=== PATIENT | male | born 1960 | race Caucasian/White ===

== ENCOUNTER 2018-03-19 23:26 | Emergency (ER) | payer BC ==
[2018-03-20] MEDS ORDERED: NA CHLORIDE 0.9% 1,000 ML ONE (00:05)
[2018-03-20] MEDS ORDERED: KETOROLAC 30 MG/ML INJ ONE (00:05)
[2018-03-20] MEDS ORDERED: ONDANSETRON 4 MG/2 ML VIAL ONE (00:05)
[2018-03-20 00:12] LABS: Absolute Lymphocytes (CBC) 2.6 K/uL (0.7-4.9); Absolute Monocytes 0.8 K/uL (0.1-1.3); Absolute Neutrophil 6.8 K/uL (1.8-8.0); Basophils % 0.7 % (0-1.3); Eosinophils % 1.2 % (0-4.4); Hematocrit 43.7 % (39.6-49.0); Lymphocytes % 25.1 % (15.3-44.8); MCH 29.7 pg (27.0-35.0); MCV 89.5 fL (80-100); MPV 9.5 fL (7.6-11.3); Monocytes % 7.8 % (3.3-12.3); RBC Red Blood Cell Count 4.88 M/uL (4.33-5.43)
[2018-03-20 00:22] LABS: Urine Blood 1+ (NEG); Urine Glucose NEGATIVE (NEG); Urine Protein NEGATIVE (NEG); Urine Specific Gravity >1.030 (1.005-1.030)
[2018-03-20 00:25] LABS: Albumin 4.1 g/dL (3.4-5.0); Bilirubin Direct 0.2 mg/dL (0-0.2); Bilirubin Total 0.8 mg/dL (0.2-1.0); Potassium 3.7 mmol/L (3.5-5.1); Protein, Total 7.7 g/dL (6.4-8.2)
[2018-03-20 00:26] LABS: Calcium Oxalate Crystals- Ur MODERATE (NONE SEEN); Urine Bacteria <20 /HPF (NONE SEEN); Urine Culture Reflex Order NOT NEEDED; Urine Mucus 2+ /HPF (NONE SEEN); Urine RBC <5 /HPF (NONE SEEN); Urine Sperm PRESENT (NONE SEEN)
--- NOTE | 2018-03-20 02:14 | EDPHYS ---
Physician Documentation [facility] Name: Nahum Quiros Age: 57 yrs Sex: Male : 1960 Arrival Date: 03/19/2018 Time: 23:27 Bed 28 Private MD: Jaskaran Jones B ED Physician Soy Can HPI: 03/20 01:33 This 57 yrs old Male presents to ER via Ambulatory with complaints of tw4 Possible Kidney Stone. 01:33 The patient complains of pain in the left low back. The pain radiates to the left lower tw4 quadrant. Onset: The symptoms/episode began/occurred today. Modifying factors: The symptoms are alleviated by nothing. the symptoms are aggravated by nothing. Associated signs and symptoms: The patient has no apparent associated signs or symptoms. Severity of pain: At its worst the pain was moderate in the emergency department the pain is unchanged. The patient has not experienced similar symptoms in the past. Historical: - Allergies: 03/19 23:39 PENICILLINS; bb - Home Meds: 23:39 telmisartan 40 mg oral tab 1 tab twice a day [Active]; bb - PMHx: 23:39 Hypertension; Kidney stones; bb - PSHx: 23:39 Hernia repair; bb - Immunization history:: Adult Immunizations up to date. - Social history:: Smoking status: unknown. - Ebola Screening: : No symptoms or risks identified at this time. ROS: 03/20 01:33 Constitutional: Negative for fever, chills, and weight loss, Cardiovascular: Negative tw4 for chest pain, palpitations, and edema, Respiratory: Negative for shortness of breath, cough, wheezing, and pleuritic chest pain, Abdomen/GI: Negative for abdominal pain, nausea, vomiting, diarrhea, and constipation. Neuro: Negative for headache, weakness, numbness, tingling, and seizure, Psych: Negative for depression, anxiety, suicide ideation, homicidal ideation, and hallucinations. Back: Positive for pain at rest, pain with movement, flank pain, on the left, radiated pain. Exam: 01:33 Constitutional: This is a well developed, well nourished patient who is awake, alert, tw4 and in no acute distress. Head/Face: Normocephalic, atraumatic. Chest/axilla: Normal chest wall appearance and motion. Nontender with no deformity. No lesions are appreciated. Cardiovascular: Regular rate and rhythm with a normal S1 and S2. No gallops, murmurs, or rubs. Normal PMI, no JVD. No pulse deficits. Respiratory: Lungs have equal breath sounds bilaterally, clear to auscultation and percussion. No rales, rhonchi or wheezes noted. No increased work of breathing, no retractions or nasal flaring. Abdomen/GI: Soft, non-tender, with normal bowel sounds. No distension or tympany. No guarding or rebound. No evidence of tenderness throughout. 01:33 Back: pain, is absent, CVA tenderness, is noted on the left. Vital Signs: 03/19 23:39 BP 199 / 101; Pulse 71; Resp 18 S; Temp 98.1(O); Pulse Ox 99% on R/A; Weight 102.06 kg bb (R); Height 6 ft. 3 in. (190.50 cm) (R); Pain 10/10; 03/20 01:00 BP 155 / 87; Pulse 78; Resp 18; Pulse Ox 95% on R/A; tl3 02:00 BP 145 / 82; Pulse 69; Resp 16 S; Pulse Ox 97% on R/A; jd3 07 23:39 Body Mass Index 28.12 (102.06 kg, 190.50 cm) bb MDM: 03/19 23:37 Patient medically screened. tw4 03/20 01:33 Differential diagnosis: UTI, testicular torsion, diverticulitis. Data reviewed: vital tw4 signs, nurses notes. Counseling: I had a detailed discussion with the patient and/or guardian regarding: the historical points, exam findings, and any diagnostic results supporting the discharge/admit diagnosis, lab results. 03/19 23:41 Order name: Amylase, Serum; Complete Time: 00:48 tw4 03/20 00:49 Interpretation: Within normal limits: HEATH 43. tw4 03/19 23:41 Order name: Basic Metabolic Panel; Complete Time: 00:48 tw4 03/20 00:48 Interpretation: Normal except: GLUC 130; GFR 57. tw4 03/19 23:41 Order name: CBC with Diff; Complete Time: 00:48 tw4 03/19 23:41 Order name: Creatinine for Radiology; Complete Time: 00:48 tw4 03/20 00:48 Interpretation: Normal except: GFR 57. [facility] 03/19 23:41 Order name: Hepatic Function; Complete Time: 00:48 [facility] 03/20 00:48 Interpretation: Normal except: GLOB 3.6; ALK 37. [facility] 03/19 23:41 Order name: Lipase; Complete Time: 00:48 [facility] 03/20 00:49 Interpretation: LIP 126. [facility] 03/19 23:41 Order name: Urine Microscopic Only; Complete Time: 00:48 [facility] 03/20 00:49 Interpretation: Normal except: CAOX MODERATE; SPERM PRESENT. [facility] 03/19 23:41 Order name: IV Saline Lock; Complete Time: 00:18 [facility] 03/19 23:50 Order name: Urine Dipstick--Ancillary (enter results); Complete Time: 00:48 or 07 00:49 Interpretation: Normal except: UBLD 1+; USPGR >1.030. [facility] 03/19 23:51 Order name: CT Stone Protocol [facility] 03/19 23:41 Order name: Labs collected and sent; Complete Time: 00:18 [facility] 03/19 23:41 Order name: Urine Dipstick-Ancillary (obtain specimen); Complete Time: 00:18 [facility] Administered Medications: 00:17 Drug: TORadol 30 mg Route: IVP; Infused Over: 3 mins; Site: left antecubital; tl3 01:01 Follow up: Response: No adverse reaction; Pain is decreased tl3 00:17 Drug: NS 0.9% 1000 ml Route: IV; Rate: 1 bolus; Site: left antecubital; Delivery: tl3 Primary tubing; 01:20 Follow up: Response: No adverse reaction; IV Status: Completed infusion; IV Intake: jd3 1000ml 00:17 Drug: Zofran 4 mg Route: IVP; Infused Over: 2 mins; Site: left antecubital; tl3 01:01 Follow up: Response: Nausea is decreased tl3 02:35 Drug: Tylenol 500 mg Route: PO; jd3 02:35 Follow up: Response: Medication administered at discharge. jd3 Disposition: 03/20/18 02:14 Discharged to Home. Impression: Calculus of lower urinary tract, unspecified. - Condition is Stable. - Discharge Instructions: Kidney Stones, [id number], Dietary Guidelines to Help Prevent Kidney Stones. - Prescriptions for Ibuprofen 800 mg Oral Tablet - take 1 tablet by ORAL route every 8 hours As needed take with food; 30 tablet. Tylenol- Codeine #3 300-30 mg Oral Tablet - take 2 tablet by ORAL route every 6 hours As needed; 6 tablet. Flomax 0.4 mg Oral Capsule, Sust. Release 24 hr - take 1 capsule by ORAL route once daily 1/2 hour following the same meal each day; 30 capsule. - Medication Reconciliation Form, Thank You Letter, Antibiotic Education, Prescription Opioid Use form. - Follow up: Private Physician; When: As needed; Reason: Recheck today's complaints, Re-evaluation by your physician. Follow up: Don Preciado MD; When: As needed; Reason: Recheck today's complaints, Re-evaluation by your physician. - Problem is new. - Symptoms have improved. Signatures: Dispatcher [employer] EDMS Sierra Francis RN RN bb Joesph Watt RN RN jd3 Soy Can MD MD tw4 Deidra Lizarraga RN RN tl3 Corrections: (The following items were deleted from the chart) 02:15 02:14 03/20/2018 02:14 Discharged to Home. Impression: Calculus of lower urinary tract, tw4 unspecified. Condition is Stable. Forms are Medication Reconciliation Form, Thank You Letter, Antibiotic Education, Prescription Opioid Use. Follow up: Private Physician; When: As needed; Reason: Recheck today's complaints, Re-evaluation by your physician. Problem is new. Symptoms have improved. tw4 02:36 02:15 03/20/2018 02:14 Discharged to Home. Impression: Calculus of lower urinary tract, jd3 unspecified. Condition is Stable. Discharge Instructions: Kidney Stones, [id number], Dietary Guidelines to Help Prevent Kidney Stones. Prescriptions for Ibuprofen 800 mg Oral Tablet - take 1 tablet by ORAL route every 8 hours As needed take with food; 30 tablet, Tylenol-Codeine #3 300-30 mg Oral Tablet - take 2 tablet by ORAL route every 6 hours As needed; 6 tablet, Flomax 0.4 mg Oral Capsule, Sust. Release 24 hr - take 1 capsule by ORAL route once daily 1/2 hour following the same meal each day; 30 capsule. and Forms are Medication Reconciliation Form, Thank You Letter, Antibiotic Education, Prescription Opioid Use. Follow up: Private Physician; When: As needed; Reason: Recheck today's complaints, Re-evaluation by your physician. Follow up: Don Preciado; When: As needed; Reason: Recheck today's complaints, Re-evaluation by your physician. Problem is new. Symptoms have improved. tw4
--- NOTE | 2018-03-20 02:14 | ER ---
Nurse's Notes [facility] Name: Nahum Quiros Age: 57 yrs Sex: Male : 1960 Arrival Date: 03/19/2018 Time: 23:27 Bed 28 Private MD: Jaskaran Jones B Diagnosis: Calculus of lower urinary tract, unspecified Presentation: 03/19 23:37 Presenting complaint: Patient states: he woke up with sudden onset of left flank pain bb radiating to abdomen. Transition of care: patient was not received from another setting of care. Onset of symptoms was March 19, 2018. Risk Assessment: Do you want to hurt yourself or someone else? Patient reports no desire to harm self or others. Initial Sepsis Screen: Does the patient meet any 2 criteria? No. Patient's initial sepsis screen is negative. Does the patient have a suspected source of infection? No. Patient's initial sepsis screen is negative. Care prior to arrival: None. 23:37 Method Of Arrival: Ambulatory bb 23:37 Acuity: BHAVYA 3 bb Historical: - Allergies: 23:39 PENICILLINS; bb - Home Meds: 23:39 telmisartan 40 mg oral tab 1 tab twice a day [Active]; bb - PMHx: 23:39 Hypertension; Kidney stones; bb - PSHx: 23:39 Hernia repair; bb - Immunization history:: Adult Immunizations up to date. - Social history:: Smoking status: unknown. - Ebola Screening: : No symptoms or risks identified at this time. Screenin:40 Abuse screen: Denies threats or abuse. Nutritional screening: No deficits noted. tl3 Tuberculosis screening: No symptoms or risk factors identified. Fall Risk None identified. Assessment: 23:40 General: Appears distressed, uncomfortable, slender, well groomed, well developed, well tl3 nourished, Behavior is calm, cooperative, appropriate for age. Pain: Complains of pain in right mid back and right low back Pain currently is 10 out of 10 on a pain scale. Neuro: Level of Consciousness is awake, alert, obeys commands, Oriented to person, place, time, situation, Appropriate for age. Cardiovascular: Patient's skin is warm and dry. Respiratory: Airway is patent Respiratory effort is even, unlabored, Respiratory pattern is regular, symmetrical. GI: No signs and/or symptoms were reported involving the gastrointestinal system. : Reports pain in right flank(s), urinary frequency. EENT: No signs and/or symptoms were reported regarding the EENT system. Derm: No signs and/or symptoms reported regarding the dermatologic system. Musculoskeletal: No signs and/or symptoms reported regarding the musculoskeletal system. 23:40 GI: Bowel sounds present X 4 quads. Abd is soft and non tender X 4 quads. jd3 03/20 01:00 Reassessment: Patient and/or family updated on plan of care and expected duration. Pain tl3 level reassessed. Patient is alert, oriented x 3, equal unlabored respirations, skin warm/dry/pink. pt is resting quietly, states pain is much better. 02:01 Reassessment: Patient appears in no apparent distress at this time. Patient and/or jd3 family updated on plan of care and expected duration. Pain level reassessed. Patient is alert, oriented x 3, equal unlabored respirations, skin warm/dry/pink. Patient states feeling better. 02:33 Reassessment: Patient appears in no apparent distress at this time. Patient and/or jd3 family updated on plan of care and expected duration. Pain level reassessed. Patient is alert, oriented x 3, equal unlabored respirations, skin warm/dry/pink. pt reported understanding of discharge instructions, even and steady gait upon discharge. Vital Signs: 03/19 23:39 BP 199 / 101; Pulse 71; Resp 18 S; Temp 98.1(O); Pulse Ox 99% on R/A; Weight 102.06 kg bb (R); Height 6 ft. 3 in. (190.50 cm) (R); Pain 10/10; 03/20 01:00 BP 155 / 87; Pulse 78; Resp 18; Pulse Ox 95% on R/A; tl3 02:00 BP 145 / 82; Pulse 69; Resp 16 S; Pulse Ox 97% on R/A; jd3 03/19 23:39 Body Mass Index 28.12 (102.06 kg, 190.50 cm) ED Course: 03/19 23:27 Patient arrived in ED. ds1 23:27 Jaskaran Jones MD is Private Physician. ds1 23:37 Soy Can MD is Attending Physician. tw4 23:37 Triage completed. bb 23:39 Arm band placed on Patient placed in an exam room, on a stretcher, on pulse oximetry. bb 23:40 Patient has correct armband on for positive identification. Bed in low position. Call tl3 light in reach. Side rails up X 1. Pulse ox on. NIBP on. 23:40 No provider procedures requiring assistance completed. Inserted saline lock: 20 gauge tl3 in left antecubital area, using aseptic technique. Blood collected. 23:40 Urine collected: clean catch specimen. Initial lab(s) drawn, by me, sent to lab. tl3 23:56 Patient moved to SC via wheelchair. kw1 23:57 Deidra Lizarraga, OLY is Primary Nurse. tl3 0703 00:10 CT completed. Patient tolerated procedure well. Patient moved back from SC. kw1 00:13 CT Stone Protocol In Process Unspecified. EDMS 01:00 Report given to OLY Pink. tl3 02:15 Don Preciado MD is Referral Physician. tw4 02:35 IV discontinued, intact, bleeding controlled, No redness/swelling at site. Pressure jd3 dressing applied. Administered Medications: 00:17 Drug: TORadol 30 mg Route: IVP; Infused Over: 3 mins; Site: left antecubital; tl3 01:01 Follow up: Response: No adverse reaction; Pain is decreased tl3 00:17 Drug: NS 0.9% 1000 ml Route: IV; Rate: 1 bolus; Site: left antecubital; Delivery: tl3 Primary tubing; 01:20 Follow up: Response: No adverse reaction; IV Status: Completed infusion; IV Intake: jd3 1000ml 00:17 Drug: Zofran 4 mg Route: IVP; Infused Over: 2 mins; Site: left antecubital; tl3 01:01 Follow up: Response: Nausea is decreased tl3 02:35 Drug: Tylenol 500 mg Route: PO; jd3 02:35 Follow up: Response: Medication administered at discharge. jd3 Intake: 01:20 IV: 1000ml; Total: 1000ml. jd3 Outcome: 02:14 Discharge ordered by . tw4 02:35 Discharged to home ambulatory. jd3 02:35 Condition: stable 02:35 Discharge instructions given to patient, Instructed on discharge instructions, follow up and referral plans. medication usage, Demonstrated understanding of instructions, follow-up care, medications, Prescriptions given X 3. 02:36 Patient left the ED. jd3 Signatures: Dispatcher [employer] EDMS Briana Prieto ds1 Sierra Francis RN RN Joesph Bernstein RN RN jd3 Arlene Cramer kw1 Soy Can MD MD tw4 Deidra Lizarraga RN RN tl3 Corrections: (The following items were deleted from the chart) 00:28 03/19 23:40 Initial lab(s) drawn, by me, sent to lab. Urine collected: straight cath tl3 specimen, clear, tl3
[2018-03-20] MEDS ORDERED: ACETAMINOPHEN 500 MG TAB ONE (02:31)
--- NOTE | 2018-03-20 08:45 | RAD REPORT ---
EXAM DESCRIPTION: CT - Stone Protocol - 03/20/2018 7:17 am CLINICAL HISTORY: Abdominal pain. Left flank pain COMPARISON: 2009 TECHNIQUE: Computed axial tomography of the abdomen pelvis was obtained without oral or IV contrast. Lack of IV and oral contrast limits evaluation of solid organs, bowel, and vessels. Coronal reformat anu images were obtained and reviewed. A preliminary report was generated by [employer] and hanane del cid prior to this dictation All CT scans are performed using dose optimization technique as appropriate and may include automated exposure control or mA/KV adjustment according to patient size. FINDINGS: A renal calculus is not seen. Mild left hydronephrosis is present. A 1 millimeter calculus is present at the left ureterovesical junction. The Fatty infiltration of liver is present. A small hiatal hernia is seen. Spleen, pancreas and adrenals appear grossly normal There is no evidence of diverticulitis. The appendix appears normal. Inguinal hernias contain fat. Prominent spondylosis involves L5-S1 IMPRESSION: 1 millimeter calculus at the left ureterovesical junction resulting in mild left hydrone phrosis
== END 2018-03-20 02:36 | disposition home or self-care (01) ==
LOC: ER 23:26
DX: N20.9 Urinary calculus, unspecified (principal); I10 Essential (primary) hypertension; Z87.442 Personal history of urinary calculi; Z88.0 Allergy status to penicillin
CPT/HCPCS: 36415; 74176; 76377; 80048; 80076; 81003; 81015; 82150; 83690; 85025; 96361; 96374; 96375; 99284; J2405; J7030

== ENCOUNTER 2019-07-17 16:32 | Emergency (ER) | payer BC ==
--- NOTE | 2019-07-17 18:15 | RAD REPORT ---
EXAM DESCRIPTION: RAD - Chest Single View - 07/17/2019 6:00 pm CLINICAL HISTORY: Cough COMPARISON: None. TECHNIQUE: AP portable chest image was obtained 1755 hours . FINDINGS: Lungs are clear. Heart and vasculature are normal. No measurable pleural effusion and no p neumothorax. No acute bony abnormality seen. No acute aortic findings suspected. IMPRESSION: No acute cardiopulmonary process.
[2019-07-17 18:27] LABS: Urine Blood 3+ (NEG); Urine Glucose NEGATIVE (NEG); Urine Protein 1+ (NEG)
[2019-07-17] MEDS ORDERED: Levofloxacin500mg IV 500 MG/100 ML BAG IV ONE (18:28)
[2019-07-17] MEDS ORDERED: METRONIDAZOLE 500mg IVPB 500 MG/100 ML BAG IV ONE (18:28)
[2019-07-17] MEDS ORDERED: ACETAMINOPHEN 325 MG TABLET ONE (18:28)
[2019-07-17 18:29] LABS: Protime INR 1.34
[2019-07-17] MEDS ORDERED: NA CHLORIDE 0.9% 1,000 ML ONE (18:29)
[2019-07-17 18:39] LABS: ALT/SGPT 44 U/L (12-78); AST/SGOT 27 U/L (15-37); Albumin 2.7 g/dL (3.4-5.0); Alkaline Phosphatase 29 U/L (45-117); BUN Blood Urea Nitrogen 15 mg/dL (7-18); Bicarbonate 28 mmol/L (21-32); Bilirubin Direct 0.5 mg/dL (0-0.2); Bilirubin Total 1.9 mg/dL (0.2-1.0); Glucose Level 93 mg/dL (74-106); Lipase 251 U/L (73-393); Magnesium 2.3 mg/dL (1.8-2.4); NT PRO-BNP 325 pg/mL (<125); Potassium 3.2 mmol/L (3.5-5.1); Protein, Total 6.3 g/dL (6.4-8.2); Sodium Level 141 mmol/L (136-145); Troponin (Emerg Dept Use Only) < 0.02 ng/mL (0.0-0.045)
[2019-07-17 18:50] LABS: Absolute Lymphocytes (CBC) 0.8 K/uL (0.7-4.9); Basophils % 0.3 % (0-1.3); Hematocrit 27.7 % (39.6-49.0); Lymphocytes % 8.8 % (15.3-44.8); MPV 9.1 fL (7.6-11.3); RBC Red Blood Cell Count 3.09 M/uL (4.33-5.43)
--- NOTE | 2019-07-17 18:57 | ER ---
Nurse's Notes [facility] Name: Nahum Quiros Age: 58 yrs Sex: Male : 1960 Arrival Date: 07/17/2019 Time: 16:36 Bed 27 Private MD: Jaskaran Jones B Diagnosis: Abdominal tenderness;Anemia, unspecified;Hemoperitoneum Presentation: 07/17 16:52 Presenting complaint: Patient states: "I had my prostate removed on the because of aa5 cancer on the they found out I was bleeding internally so they did another procedure to fix that problem but one of my incisions started bleeding today around 3:45pm". Pt states "I've been running a fever since I was in the hospital". Pt reports he was dc'd home from [facility] yesterday. Transition of care: patient was not received from another setting of care. Onset of symptoms was June 2019. Risk Assessment: Do you want to hurt yourself or someone else? Patient reports no desire to harm self or others. Initial Sepsis Screen: Does the patient meet any 2 criteria? No. Patient's initial sepsis screen is negative. Does the patient have a suspected source of infection? No. Patient's initial sepsis screen is negative. Care prior to arrival: None. 16:52 Acuity: BHAVYA 3 aa5 16:52 Method Of Arrival: Wheelchair aa5 Historical: - Allergies: 16:56 PENICILLINS; aa5 - PMHx: 16:56 Hypertension; Kidney stones; Prostate Cancer; aa5 - PSHx: 16:56 Hernia repair; Prostate removed; aa5 - Immunization history:: Flu vaccine is not up to date. - Social history:: Smoking status: Patient/guardian denies using tobacco. - Ebola Screening: : No symptoms or risks identified at this time. - Family history:: not pertinent. Screenin:21 Abuse screen: Denies threats or abuse. Denies injuries from another. Nutritional rv screening: No deficits noted. Tuberculosis screening: No symptoms or risk factors identified. Fall Risk None identified. Assessment: 17:16 General: Appears in no apparent distress. uncomfortable, Behavior is calm, cooperative. rv Pain: Complains of pain in lower abdomen and right groin area. Neuro: Level of Consciousness is awake, alert, obeys commands, Oriented to person, place, time, situation. Cardiovascular: Patient's skin is warm and dry. Respiratory: Airway is patent. GI: Abdomen is distended, bruised on anterior aspect of left lateral abdomen and anterior aspect of right lateral abdomen. : Lin in place to gravity drainage Urine is clear, Reports pain in right scrotum, swelling and bruised. EENT: No signs and/or symptoms were reported regarding the EENT system. Derm: Skin temperature is cold Bruising that is dark purple, on anterior aspect of left lateral abdomen, anterior aspect of right lateral abdomen, groin, right femoral area, right inguinal area, right iliac crest and left iliac crest. Musculoskeletal: Capillary refill is sluggish, in bilateral toes. 18:49 Reassessment: Pt to CT now. Vital Signs: 16:56 BP 153 / 71; Pulse 85; Resp 18 S; Temp 100.2(O); Pulse Ox 100% on R/A; Weight 85.73 kg aa5 (R); Pain 3/10; 18:30 BP 139 / 70; Pulse 82; Resp 17; Pulse Ox 100% on R/A; rv 19:21 BP 146 / 69; Pulse 88; Resp 15; Pulse Ox 98% ; rv 21:35 BP 143 / 70; Pulse 89; Resp 18; Pulse Ox 99% on R/A; rv ED Course: 16:36 Patient arrived in ED. mr 16:36 Jaskaran Jones MD is Private Physician. mr 16:52 Arm band placed on. aa5 16:55 Triage completed. aa5 17:02 Teo Fair, OLY is Primary Nurse. rv 17:11 Daron Jordan MD is Attending Physician. bernardo 17:22 Patient has correct armband on for positive identification. Bed in low position. Call rv light in reach. Side rails up X 1. Adult w/ patient. Pulse ox on. NIBP on. 17:[address] Chase Cervantes. bd 17:50 Radiology exam delayed due to lab results not completed at this time. (BUN/Creatinine). vm2 17:50 Inserted saline lock: 20 gauge in left antecubital area, using aseptic technique. Blood rv collected. 17:50 Initial lab(s) drawn, by me, sent to lab. First set of blood cultures drawn by me. rv 18:01 XRAY Chest (1 view) In Process Unspecified. EDMS 18:32 Second set of blood cultures drawn by me. lt1 18:59 CT Abd/Pelvis - IV Contrast Only In Process Unspecified. EDMS 21:35 No provider procedures requiring assistance completed. Patient transferred, IV remains rv in place. Administered Medications: 18:41 Drug: levofloxacin 500 mg Volume: 100 ml; Route: IVPB; Infused Over: 60 mins; Site: rv left antecubital; 21:23 Follow up: IV Status: Completed infusion rv 18:41 Drug: Tylenol 650 mg Route: PO; rv 21:23 Follow up: Response: No adverse reaction rv 19:00 Drug: Flagyl 500 mg Volume: 100 ml; Route: IVPB; Rate: 200 ml/hr; Infused Over: 30 rv mins; Site: left antecubital; 21:23 Follow up: IV Status: Completed infusion rv 19:29 Drug: Potassium Effervescent Tablet 25 mEq Route: PO; rv 21:24 Follow up: Response: No adverse reaction rv Outcome: 18:56 ER care complete, transfer ordered by MD. chang 21:35 Transferred by ground EMS to [facility], Transfer form completed. X-rays rv sent w/ patient. 21:35 Condition: stable 21:35 Discharge instructions given to patient, Instructed on the need for transfer. 21:39 Patient left the ED. rv Signatures: Dispatcher [employer] EDMS Josette Navarrete Corey, MD MD cha Rivera, Fatuma mr Matta, OLY Gayle RN aa5 Desire Richardson RN RN Kaykay Madison [facility] Teo Fair RN RN rv Tran, Leah lt1
--- NOTE | 2019-07-17 18:57 | EDPHYS ---
Physician Documentation [facility] Name: Nahum Quiros Age: 58 yrs Sex: Male : 1960 Arrival Date: 07/17/2019 Time: 16:36 Bed 27 Private MD: Jaskaran Jones B ED Physician Daron Jordan HPI: 07/17 17:44 This 58 yrs old Male presents to ER via Wheelchair with complaints of bernardo Incision bleeding. 17:44 The patient presents with abdominal pain abdominal distention in the lower abdomen. bernardo Onset: The symptoms/episode began/occurred 1 day(s) ago. The patient presents with scrotal pain, of both sides. 17:45 Onset: The symptoms/episode began/occurred 1 day(s) ago. Modifying factors: The bernardo symptoms are alleviated by nothing, the symptoms are aggravated by movement, pressure. Associated signs and symptoms: Pertinent positives: abdominal pain, fever. The symptoms do not radiate. Associated signs and symptoms: Pertinent positives: fever. The patient reports fever, that was measured at 100.2 degrees Fahrenheit. Historical: - Allergies: 16:56 PENICILLINS; aa5 - PMHx: 16:56 Hypertension; Kidney stones; Prostate Cancer; aa5 - PSHx: 16:56 Hernia repair; Prostate removed; aa5 - Immunization history:: Flu vaccine is not up to date. - Social history:: Smoking status: Patient/guardian denies using tobacco. - Ebola Screening: : No symptoms or risks identified at this time. - Family history:: not pertinent. ROS: 17:45 Constitutional: Negative for fever, chills, and weight loss, Eyes: Negative for injury, bernardo pain, redness, and discharge, ENT: Negative for injury, pain, and discharge, Neck: Negative for injury, pain, and swelling, Respiratory: Negative for shortness of breath, cough, wheezing, and pleuritic chest pain, MS/Extremity: Negative for injury and deformity, Skin: Negative for injury, rash, and discoloration, Neuro: Negative for headache, weakness, numbness, tingling, and seizure, Psych: Negative for depression, anxiety, suicide ideation, homicidal ideation, and hallucinations, Allergy/Immunology: Negative for hives, rash, and allergies, Endocrine: Negative for neck swelling, polydipsia, polyuria, polyphagia, and marked weight changes, Hematologic/Lymphatic: Negative for swollen nodes, abnormal bleeding, and unusual bruising. 17:45 Cardiovascular: Positive for palpitations. 17:45 Abdomen/GI: Positive for abdominal pain, abdominal distension. 17:45 Back: Positive for pain at rest, flank pain, of the left low back, left mid back, right mid back and right low back. Exam: 17:45 Constitutional: This is a well developed, well nourished patient who is awake, alert, bernardo and in no acute distress. Head/Face: Normocephalic, atraumatic. Eyes: Pupils equal round and reactive to light, extra-ocular motions intact. Lids and lashes normal. Conjunctiva and sclera are non-icteric and not injected. Cornea within normal limits. Periorbital areas with no swelling, redness, or edema. ENT: Nares patent. No nasal discharge, no septal abnormalities noted. Tympanic membranes are normal and external auditory canals are clear. Oropharynx with no redness, swelling, or masses, exudates, or evidence of obstruction, uvula midline. Mucous membranes moist. Neck: Trachea midline, no thyromegaly or masses palpated, and no cervical lymphadenopathy. Supple, full range of motion without nuchal rigidity, or vertebral point tenderness. No Meningismus. Chest/axilla: Normal chest wall appearance and motion. Nontender with no deformity. No lesions are appreciated. Respiratory: Lungs have equal breath sounds bilaterally, clear to auscultation and percussion. No rales, rhonchi or wheezes noted. No increased work of breathing, no retractions or nasal flaring. Skin: Warm, dry with normal turgor. Normal color with no rashes, no lesions, and no evidence of cellulitis. MS/ Extremity: Pulses equal, no cyanosis. Neurovascular intact. Full, normal range of motion. Neuro: Awake and alert, GCS 15, oriented to person, place, time, and situation. Cranial nerves II-XII grossly intact. Motor strength 5/5 in all extremities. Sensory grossly intact. Cerebellar exam normal. Normal gait. Psych: Awake, alert, with orientation to person, place and time. Behavior, mood, and affect are within normal limits. 17:45 Cardiovascular: Rate: tachycardic, Rhythm: regular, Pulses: Pulses are 4+ in bilateral radial, brachial, femoral, popliteal, posterior tibial and and dorsalis pedis arteries.. Heart sounds: normal, normal S1and S2, no S3 or S4, no murmur, no rub, no gallop, Edema: is not appreciated, JVD: is not appreciated. Vital Signs: 16:56 BP 153 / 71; Pulse 85; Resp 18 S; Temp 100.2(O); Pulse Ox 100% on R/A; Weight 85.73 kg aa5 (R); Pain 3/10; 18:30 BP 139 / 70; Pulse 82; Resp 17; Pulse Ox 100% on R/A; rv 19:21 BP 146 / 69; Pulse 88; Resp 15; Pulse Ox 98% ; rv 21:35 BP 143 / 70; Pulse 89; Resp 18; Pulse Ox 99% on R/A; rv MDM: 17:11 Patient medically screened. [facility] 17:48 Data reviewed: vital signs, nurses notes, lab test result(s), EKG, radiologic studies, [facility] CT scan, plain films. 07/17 17:44 Order name: Basic Metabolic Panel; Complete Time: 18:54 [facility] 07/17 17:44 Order name: CBC with Diff [facility] 07/17 17:44 Order name: LFT's; Complete Time: 18:54 [facility] 07/17 17:44 Order name: Magnesium; Complete Time: 18:54 [facility] 07/17 17:44 Order name: NT PRO-BNP; Complete Time: 18:54 [facility] 07/17 17:44 Order name: PT-INR; Complete Time: 18:54 [facility] 07/17 17:44 Order name: Troponin (emerg Dept Use Only); Complete Time: 18:54 [facility] 07/17 17:44 Order name: XRAY Chest (1 view); Complete Time: 18:54 [facility] 07/17 17:44 Order name: Lipase; Complete Time: 18:54 [facility] 07/17 17:44 Order name: Type And Screen [facility] 07/17 17:44 Order name: Procalcitonin [facility] 07/17 17:44 Order name: Urine Culture [facility] 07/17 17:44 Order name: Blood Culture Adult (2) [facility] 07/17 18:26 Order name: Urine Dipstick--Ancillary (enter results); Complete Time: 18:54 07/17 17:44 Order name: EKG; Complete Time: 17:45 [facility] 07/17 17:44 Order name: Cardiac monitoring; Complete Time: 18:41 [facility] 07/17 17:44 Order name: EKG - Nurse/Tech; Complete Time: 18:41 [facility] 07/17 17:44 Order name: IV Saline Lock; Complete Time: 18:41 [facility] 07/17 17:44 Order name: Labs collected and sent; Complete Time: 18:41 [facility] 07/17 17:44 Order name: O2 Per Protocol; Complete Time: 18:41 [facility] 07/17 17:44 Order name: O2 Sat Monitoring; Complete Time: 18:41 [facility] 07/17 17:44 Order name: Urine Dipstick-Ancillary (obtain specimen); Complete Time: 18:39 [facility] 07/17 17:44 Order name: CT Abd/Pelvis - IV Contrast Only [facility] Administered Medications: 18:41 Drug: levofloxacin 500 mg Volume: 100 ml; Route: IVPB; Infused Over: 60 mins; Site: rv left antecubital; 21:23 Follow up: IV Status: Completed infusion rv 18:41 Drug: Tylenol 650 mg Route: PO; rv 21:23 Follow up: Response: No adverse reaction rv 19:00 Drug: Flagyl 500 mg Volume: 100 ml; Route: IVPB; Rate: 200 ml/hr; Infused Over: 30 rv mins; Site: left antecubital; 21:23 Follow up: IV Status: Completed infusion rv 19:29 Drug: Potassium Effervescent Tablet 25 mEq Route: PO; rv 21:24 Follow up: Response: No adverse reaction rv Disposition: 07/17/19 18:56 Transfer ordered to [facility]. Diagnosis are Abdominal tenderness, Anemia, unspecified, Hemoperitoneum. - Reason for transfer: Higher level of care. - Accepting physician is to samara richards. - Condition is Fair. - Problem is new. - Symptoms have improved. Signatures: Dispatcher [employer] EDMS Daron Jordan MD MD cha Calderon, Audri, RN RN aa5 Teo Fair RN RN rv Corrections: (The following items were deleted from the chart) 21:39 18:56 07/17/2019 18:56 Transfer ordered to [facility]. Diagnosis is rv Abdominal tenderness; Anemia, unspecified; Hemoperitoneum. Reason for transfer: Higher level of care. Accepting physician is to dr miles, rastafari. Condition is Fair. Problem is new. Symptoms have improved. bernardo
--- NOTE | 2019-07-17 19:19 | RAD REPORT ---
EXAM DESCRIPTION: CT - Abdomen Pelvis W Contrast - 07/17/2019 6:58 pm CLINICAL HISTORY: Abd pain;Abdominal distention, recent prostatectomy for carcinoma COMPARISON: None. TECHNIQUE: Biphasic, helical CT imaging of the abdomen and pelvis was performed following 100 ml non -ionic IV contrast. No oral contrast. All CT scans are performed using dose optimization technique as appropriate and may include automated exposure control or mA/KV adjustment according to patient size. FINDINGS: Trace pleural fluid in each lung base. There is atelectasis present. No pericardial thicke mallory or effusion. The liver, spleen, and pancreas show no suspicious findings. Gallbladder and biliary tree are also wi thout suspicious finding. Symmetric renal function is seen with no hydronephrosis or suspicious renal mass. No pyelonephritis o r acute parenchymal process. Urinary bladder is fully contracted around a Lin catheter. No adrenal abnormalities. No dilated bowel loops or bowel wall thickening. Primary acute GI process is not suspected. No hernia or bulky lymphadenopathy. No suspicious bony findings. Patient has an extensive amount of subcutaneous emphysema along the lateral aspects of the abdomen an d the anterolateral aspects of the pelvis. The air extends into the scrotum and into the subcutaneous fatty tissues of each thigh. There is fluid in the scrotum. Fat filled right inguinal hernia is pres ent. Linear metallic artifacts seen in the lower right pelvis. This is believed to be vascular coils or si milar endovascular device. An 8 centimeter lobulated heterogeneous mass density in the lower right pe lvis is believed to be a postoperative hematoma. An abscess or drainable fluid collection is not seen at this time. Several punctate free air densities are present in the right-side of the pelvic sidewall. A few addit ional intraperitoneal free air collections are present. Those air collections are not outside of norm al range for the recent surgery. Fluid is present along the left-side pelvic side wall. IMPRESSION: Approximately 8 centimeter hematoma in the lower right pelvis. Several intraperitoneal air densities are present. These are not outside of normal range for the rece nt surgery. No abscess or drainable fluid collections seen at this time. Patient has extensive subcutaneous emphysema over the abdomen and pelvis extending into the scrotum a nd upper thighs. By available history the patient does not have clinical presentation to suspect four niers gangrene or other infectious process. This is probably air the dissected into the subcutaneous tissues during the laparoscopic assisted prostatectomy procedure
[2019-07-17] MEDS ORDERED: POTASSIUM 25 MEQ EFFERV TAB ONE (19:26)
[2019-07-17 21:47] VITALS: TEMP 100.2
[2019-07-17 21:51] VITALS: BP 143/70; O2SAT 99
== END 2019-07-17 21:39 | disposition short-term general hospital (02) ==
LOC: ER 16:32
DX: K66.1 Hemoperitoneum (principal); D64.9 Anemia, unspecified; I10 Essential (primary) hypertension; Z85.46 Personal history of malignant neoplasm of prostate; Z88.0 Allergy status to penicillin
CPT/HCPCS: 93005; 87040 ×2; 87088; 85025; 87086; 80048; 36415; 86900; 83735; 86850; 85610; 86901; 80076; 81003; 84484; 83690; 84145; 83880; 74177; 71045; Q9967; J7030

== ENCOUNTER 2019-08-15 18:08 | Emergency (ER) | payer BC ==
--- NOTE | 2019-08-15 19:04 | ER ---
Nurse's Notes [facility] Name: Nahum Quiros Age: 58 yrs Sex: Male : 1960 Arrival Date: 08/15/2019 Time: 18:10 Bed X-Ray Private MD: Jaskaran Jones B Diagnosis: Influenza due to identified novel influenza A virus Presentation: 08/15 18:13 Presenting complaint: Patient states: since Monday i had the chills and then last tw2 night it was real bad, i am congested and my throat is sore, i have been running fever, i took my temperature and it was 104 so i took some medicine. Transition of care: patient was not received from another setting of care. Onset of symptoms was August 15, 2019. Risk Assessment: Do you want to hurt yourself or someone else? Patient reports no desire to harm self or others. Care prior to arrival: None. 18:13 Method Of Arrival: Ambulatory tw2 18:13 Acuity: BHAVYA 4 tw2 18:14 Initial Sepsis Screen: Does the patient meet any 2 criteria? HR > 90 bpm. No. Patient's tw2 initial sepsis screen is negative. Does the patient have a suspected source of infection? Yes: Productive cough/pneumonia. Triage Assessment: 18:15 General: Appears in no apparent distress. Behavior is calm, cooperative, appropriate tw2 for age. Pain: Complains of pain in uvula, left aspect of posterior pharynx and right aspect of posterior pharynx. EENT: Reports nasal congestion nasal discharge. Historical: - Allergies: 18:15 No Known Allergies; tw2 - Home Meds: 18:15 None [Active]; tw2 - PMHx: 18:15 Kidney stones; Prostate Cancer; Hypertension; tw2 - PSHx: 18:15 Hernia repair; Prostate removed; tw2 - Immunization history:: Adult Immunizations. - Social history:: Smoking status: Patient/guardian denies using tobacco. - Ebola Screening: : Patient denies travel to an Ebola-affected area in the 21 days before illness onset. Screenin:19 Abuse screen: Denies threats or abuse. Nutritional screening: No deficits noted. tw2 Tuberculosis screening: No symptoms or risk factors identified. Fall Risk Secondary diagnosis (15 points) impaired mobility. Assessment: 18:20 General: Appears in no apparent distress. comfortable, Behavior is calm, cooperative, rb1 Reports chills for fever for Max temp 104. Took Coricidin between [id number] today. feeling ill for since Monday. General: Pt. reports having prostate cancer and had his prostate removed on July 11, 2019. He did not do chemo or radiation, his margins were clear.. Pain: Complains of pain in sore throat Pain began Monday. Neuro: Level of Consciousness is awake, alert, obeys commands, Oriented to person, place, time, situation. Cardiovascular: Capillary refill < 3 seconds is brisk in bilateral fingers. Respiratory: Reports cough that is Airway is patent Respiratory effort is even, unlabored, Respiratory pattern is regular, symmetrical. GI: No signs and/or symptoms were reported involving the gastrointestinal system. : No signs and/or symptoms were reported regarding the genitourinary system. EENT: Throat with gag reflex present. Derm: Skin is pink, warm \T\ dry. Musculoskeletal: Range of motion: intact in all extremities. 18:51 Reassessment: Patient appears in no apparent distress at this time. Pt. went to X-ray. rb1 Vital Signs: 18:16 BP 135 / 62; Pulse 96; Resp 17; Temp 100.0(O); Pulse Ox 95% on R/A; Weight 84.37 kg tw2 (R); Height 6 ft. 2 in. (187.96 cm); Pain 8/10; 19:15 BP 128 / 61; Pulse 88; Resp 17; Pulse Ox 98% on R/A; rb1 18:16 Body Mass Index 23.88 (84.37 kg, 187.96 cm) tw2 ED Course: 18:10 Patient arrived in ED. mr 18:10 Jaskaran Jones MD is Private Physician. mr 18:11 Breanne Massey FNP-C is PSYCHIATRICP. kb 18:11 Daron Jordan MD is Attending Physician. kb 18:14 Triage completed. tw2 18:14 Arm band placed on. tw2 18:16 Bed in low position. Call light in reach. Adult w/ patient. tw2 18:20 Praveena Terrell, RN is Primary Nurse. rb1 18:54 X-ray completed. Patient tolerated procedure well. Patient moved to radiology via 1 wheelchair. Patient moved back from radiology. 19:25 No provider procedures requiring assistance completed. Patient did not have IV access rb1 during this emergency room visit. Administered Medications: 19:15 Drug: Tamiflu 75 mg Route: PO; rb1 19:25 Follow up: Response: Medication administered at discharge. rb1 19:15 Drug: GI Cocktail without - (Maalox Suspension 30 ml, Lidocaine Liquid 2 % 15 rb1 ml) Route: PO; 19:25 Follow up: Response: Medication administered at discharge. rb1 Outcome: 19:03 Discharge ordered by . lalo 19:25 Patient left the ED. rb1 19:25 Discharge instructions given to patient, Instructed on discharge instructions, follow rb1 up and referral plans. medication usage, Demonstrated understanding of instructions, follow-up care, medications, Prescriptions given X 1. 19:26 Discharged to home ambulatory, with family. rb1 19:26 Condition: stable Signatures: Breanne Massey, CUSTOMER SUPPORT MANAGER-C CUSTOMER SUPPORT MANAGER-Ckb DuqueFatuma Fern Byrnes 1 Praveena Terrell, RN RN rb1 Albina Hines RN RN tw2 Corrections: (The following items were deleted from the chart) 18:19 18:14 Initial Sepsis Screen: Does the patient meet any 2 criteria? HR > 90 bpm. Does tw2 the patient have a suspected source of infection? Yes: Productive cough/pneumonia tw2 19:27 19:25 Patient left the ED. rb1 rb1
--- NOTE | 2019-08-15 19:04 | EDPHYS ---
Physician Documentation [facility] Name: Nahum Quiros Age: 58 yrs Sex: Male : 1960 Arrival Date: 08/15/2019 Time: 18:10 Bed X-Ray Private MD: Jaskaran Jones B ED Physician Daron Jordan HPI: 08/15 18:46 This 58 yrs old Male presents to ER via Ambulatory with complaints of Fever, kb Sore Throat, Headache. 18:46 The patient or guardian reports cough, that is intermittent, described as mild, with no kb sputum. Severity of symptoms: At their worst the symptoms were moderate, in the emergency department the symptoms are unchanged. The patient has not experienced similar symptoms in the past. The patient has not recently seen a physician. 18:46 Onset: The symptoms/episode began/occurred 2 day(s) ago. Modifying factors: The kb symptoms are alleviated by nothing, the symptoms are aggravated by nothing. Associated signs and symptoms: Pertinent positives: fever, sore throat. Historical: - Allergies: 18:15 No Known Allergies; tw2 - Home Meds: 18:15 None [Active]; tw2 - PMHx: 18:15 Kidney stones; Prostate Cancer; Hypertension; tw2 - PSHx: 18:15 Hernia repair; Prostate removed; tw2 - Immunization history:: Adult Immunizations. - Social history:: Smoking status: Patient/guardian denies using tobacco. - Ebola Screening: : Patient denies travel to an Ebola-affected area in the 21 days before illness onset. ROS: 18:45 Neck: Negative for injury, pain, and swelling, Cardiovascular: Negative for chest pain, kb palpitations, and edema, Abdomen/GI: Negative for abdominal pain, nausea, vomiting, diarrhea, and constipation, Back: Negative for injury and pain, MS/Extremity: Negative for injury and deformity, Skin: Negative for injury, rash, and discoloration, Neuro: Negative for headache, weakness, numbness, tingling, and seizure. 18:45 Constitutional: Positive for chills, fever. 18:45 ENT: Positive for sore throat. 18:45 Respiratory: Positive for cough, Negative for dyspnea on exertion, hemoptysis, orthopnea, pleurisy, shortness of breath, sputum production, wheezing. Exam: 18:45 Constitutional: This is a well developed, well nourished patient who is awake, alert, kb and in no acute distress. Head/Face: Normocephalic, atraumatic. ENT: Nares patent. No nasal discharge, no septal abnormalities noted. Tympanic membranes are normal and external auditory canals are clear. Oropharynx with no redness, swelling, or masses, exudates, or evidence of obstruction, uvula midline. Mucous membranes moist. Neck: Trachea midline, no thyromegaly or masses palpated, and no cervical lymphadenopathy. Supple, full range of motion without nuchal rigidity, or vertebral point tenderness. No Meningismus. Chest/axilla: Normal chest wall appearance and motion. Nontender with no deformity. No lesions are appreciated. Cardiovascular: Regular rate and rhythm with a normal S1 and S2. No gallops, murmurs, or rubs. Normal PMI, no JVD. No pulse deficits. Abdomen/GI: Soft, non-tender, with normal bowel sounds. No distension or tympany. No guarding or rebound. No evidence of tenderness throughout. Back: No spinal tenderness. No costovertebral tenderness. Full range of motion. Skin: Warm, dry with normal turgor. Normal color with no rashes, no lesions, and no evidence of cellulitis. MS/ Extremity: Pulses equal, no cyanosis. Neurovascular intact. Full, normal range of motion. Neuro: Awake and alert, GCS 15, oriented to person, place, time, and situation. Cranial nerves II-XII grossly intact. Motor strength 5/5 in all extremities. Sensory grossly intact. Cerebellar exam normal. Normal gait. 18:45 Respiratory: the patient does not display signs of respiratory distress, Respirations: normal, Breath sounds: rhonchi, that are mild, are heard in the right upper lobe. Vital Signs: 18:16 BP 135 / 62; Pulse 96; Resp 17; Temp 100.0(O); Pulse Ox 95% on R/A; Weight 84.37 kg tw2 (R); Height 6 ft. 2 in. (187.96 cm); Pain 8/10; 19:15 BP 128 / 61; Pulse 88; Resp 17; Pulse Ox 98% on R/A; rb1 18:16 Body Mass Index 23.88 (84.37 kg, 187.96 cm) tw2 MDM: 18:16 Patient medically screened. [facility] 18:44 Data reviewed: vital signs, nurses notes. Data interpreted: Pulse oximetry: on room air kb is 95 %. Interpretation: normal. 19:02 Counseling: I had a detailed discussion with the patient and/or guardian regarding: the kb historical points, exam findings, and any diagnostic results supporting the discharge/admit diagnosis, lab results, radiology results, the need for outpatient follow up, a family practitioner, to return to the emergency department if symptoms worsen or persist or if there are any questions or concerns that arise at home. 08/15 18:11 Order name: Strep kb 08/15 18:11 Order name: Flu kb 08/15 18:38 Order name: Chest Pa And Lat (2 Views) XRAY kb 08/15 18:46 Order name: Group A Streptococcus Rapid Sc; Complete Time: 18:48 EDMS 08/15 18:46 Order name: Influenza Screen (A ; Complete Time: 18:48 EDMS 08/15 19:19 Order name: RAD; Complete Time: 19:19 EDMS Administered Medications: 19:15 Drug: Tamiflu 75 mg Route: PO; rb1 19:25 Follow up: Response: Medication administered at discharge. rb1 19:15 Drug: GI Cocktail without - (Maalox Suspension 30 ml, Lidocaine Liquid 2 % 15 rb1 ml) Route: PO; 19:25 Follow up: Response: Medication administered at discharge. rb1 Disposition: 08/15/19 19:03 Discharged to Home. Impression: Influenza due to identified novel influenza A virus. - Condition is Stable. - Discharge Instructions: Influenza, Adult, [id number], Viral Respiratory Infection, [id number]. - Prescriptions for Tamiflu 75 mg Oral Capsule - take 1 capsule by ORAL route every 12 hours for 5 days; 10 capsule. - Medication Reconciliation Form, Thank You Letter, Antibiotic Education, Prescription Opioid Use, Work release form form. - Follow up: Emergency Department; When: As needed; Reason: Worsening of condition. Follow up: Private Physician; When: 2 - 3 days; Reason: Recheck today's complaints, Continuance of care, Re-evaluation by your physician. Addendum: 08/19/2019 10:39 Co-signature as Attending Physician, Daron Jordan MD I agree with the assessment and c serra plan of care. Signatures: Dispatcher [employer] EDMS Breanne Massey, ABRILC X RAY TECH-Daron Patricio MD MD cha Barber, Rebecca, RN RN rb1 Albina Hines RN RN tw2 Corrections: (The following items were deleted from the chart) 08/15 18:50 18:46 Onset: The symptoms/episode began/occurred 3 day(s) ago, kb kb 19:25 19:03 08/15/2019 19:03 Discharged to Home. Impression: Influenza due to identified rb1 novel influenza A virus. Condition is Stable. Forms are Medication Reconciliation Form, Thank You Letter, Antibiotic Education, Prescription Opioid Use. Follow up: Emergency Department; When: As needed; Reason: Worsening of condition. Follow up: Private Physician; When: 2 - 3 days; Reason: Recheck today's complaints, Continuance of care, Re-evaluation by your physician. kb
[2019-08-15] MEDS ORDERED: OSELTAMIVIR 75 MG CAP ONE (19:10)
--- NOTE | 2019-08-15 19:14 | RAD REPORT ---
EXAM DESCRIPTION: Nathaly Hurely (2 Views)08/15/2019 6:57 pm CLINICAL HISTORY: Cough COMPARISON: June 2019 FINDINGS: The lungs appear clear of acute infiltrate. The heart is normal size IMPRESSION: No acute abnormalities displayed
[2019-08-15] MEDS ORDERED: MAGNE/ALUM HYDROXD 30 ML UCUP ONE (19:15)
[2019-08-15] MEDS ORDERED: LIDOCAINE VISCOUS 2% SOLN 15 ML UDC ONE (19:15)
[2019-08-15 19:31] VITALS: BP 135/62; TEMP 100; O2SAT 95
== END 2019-08-15 19:25 | disposition home or self-care (01) ==
LOC: ER 18:08
DX: J10.1 Influenza due to other identified influenza virus with other respiratory manifestations (principal); I10 Essential (primary) hypertension; Z85.46 Personal history of malignant neoplasm of prostate
CPT/HCPCS: 71046; 87070; 87081; 87804; 99283

== ENCOUNTER 2021-12-04 22:48 | Emergency (ER) | payer BC, SELFPAY ==
--- NOTE | 2021-12-04 23:26 | EDPHYS ---
Physician Documentation [facility] Name: Nahum Quiros Age: 61 yrs Sex: Male : 1960 Arrival Date: 12/04/2021 Time: 22:51 Bed Waiting Private MD: Jaskaran Jones B ED Physician Corey Bennett HPI: 12/05 04:31 This 61 yrs old Male presents to ER via Ambulatory with complaints of High Blood ms3 Pressure. 04:31 The patient has elevated blood pressure and discovered this at home, with a home ms3 device. Onset: The symptoms/episode began/occurred 2 week(s) ago. Modifying factors:. Associated signs and symptoms: The patient has no apparent associated signs or symptoms. Severity of symptoms: At its worst the blood pressure was 188 mm Hg. 61-year-old male with past medical history of prostate cancer presents for elevated blood pressure over the previous 2 weeks. Patient states he was unable to see his primary care physician. Patient states this morning systolic blood pressure of 155 and a blood pressure of 188/94 just prior to arrival. Patient denies alleviating or inciting factors. Patient denies pain. Patient denies nausea, vomiting, shortness of breath, chest pain.. Historical: - Allergies: 12/04 23:11 PENICILLINS; ld1 - Home Meds: 23:11 None [Active]; ld1 - PMHx: 23:11 Hypertension; Kidney stones; Prostate Cancer; ld1 - PSHx: 23:11 None; ld1 - Immunization history:: Adult Immunizations up to date, Client reports receiving the 2nd dose of the Covid vaccine. - Social history:: Smoking status: Patient denies any tobacco usage or history of. Patient/guardian denies using alcohol. ROS: 12/05 04:31 Constitutional: Negative for fever, and chills. Eyes: Negative for injury, pain, ms3 redness, and discharge, Neck: Negative for injury, pain, and swelling, Cardiovascular: Negative for chest pain, and palpitations. Respiratory: Negative for shortness of breath, cough, wheezing, and pleuritic chest pain, Abdomen/GI: Negative for abdominal pain, nausea, vomiting, diarrhea, and constipation, Back: Negative for injury and pain, MS/Extremity: Negative for injury and deformity, Skin: Negative for injury, rash, and discoloration. All other systems are negative. Exam: 12/04 23:10 Constitutional: This is a well developed, well nourished patient who is awake, alert, ms3 and in no acute distress. Head/Face: Normocephalic, atraumatic. Eyes: Pupils equal round and reactive to light, extra-ocular motions intact. Lids and lashes normal. Conjunctiva and sclera are non-icteric and not injected. Periorbital areas with no swelling, redness, or edema. Neck: Trachea midline, no cervical lymphadenopathy. Supple, full range of motion without nuchal rigidity, or vertebral point tenderness. No Meningismus. Chest/axilla: Normal chest wall appearance and motion. Nontender with no deformity. Cardiovascular: Regular rate and rhythm with a normal S1 and S2. No gallops, murmurs, or rubs. Normal PMI, no JVD. No pulse deficits. Respiratory: Lungs have equal breath sounds bilaterally, clear to auscultation and percussion. No rales, rhonchi or wheezes noted. No increased work of breathing, no retractions or nasal flaring. Abdomen/GI: Soft, non-tender, with normal bowel sounds. No distension or tympany. No guarding or rebound. No evidence of tenderness throughout. MS/ Extremity: Pulses equal, no cyanosis. Neurovascular intact. Full, normal range of motion. Neuro: Awake and alert, GCS 15, oriented to person, place, time, and situation. Cranial nerves II-XII grossly intact. Motor strength 5/5 in all extremities. Sensory grossly intact. Cerebellar exam normal. Normal gait. Psych: Awake, alert, with orientation to person, place and time. Behavior, mood, and affect are within normal limits. Vital Signs: 23:10 BP 172 / 85; Pulse 76; Resp 18; Temp 98.1(TE); Pulse Ox 96% on R/A; Weight 97.52 kg; ld1 Height 6 ft. 3 in. (190.50 cm); Pain 0/10; 23:10 Body Mass Index 26.87 (97.52 kg, 190.50 cm) ld1 MDM: 23:10 Differential diagnosis: hypertensive crisis. ms3 23:25 Patient medically screened. ms3 23:25 Data reviewed: vital signs, nurses notes. Counseling: I had a detailed discussion with ms3 the patient and/or guardian regarding: the historical points, exam findings, and any diagnostic results supporting the discharge/admit diagnosis, the presence of at least one elevated blood pressure reading (>120/80) during this emergency department visit, the need for outpatient follow up, to return to the emergency department if symptoms worsen or persist or if there are any questions or concerns that arise at home. Administered Medications: No medications were administered Disposition Summary: 12/04/21 23:25 Discharge Ordered Location: Home ms3 Condition: Stable ms3 Diagnosis - Essential (primary) hypertension ms3 Followup: ms3 - With: Jaskaran Jones MD - When: 1 - 2 days - Reason: Discharge Instructions: - Discharge Summary Sheet ms3 - Hypertension, Adult ms3 Forms: - Medication Reconciliation Form ms3 - Thank You Letter ms3 - Antibiotic Education ms3 - Prescription Opioid Use ms3 Signatures: Corey Bennett DO DO ms3 Xin Almaguer RN RN ld1 Corrections: (The following items were deleted from the chart) 23:12 23:11 PSHx: Unable to Obtain; ld1 ld1
--- NOTE | 2021-12-04 23:26 | ER ---
Nurse's Notes [facility] Name: Nahum Quiros Age: 61 yrs Sex: Male : 1960 Arrival Date: 12/04/2021 Time: 22:51 Bed Waiting Private MD: Jaskaran Jones B Diagnosis: Essential (primary) hypertension Presentation: 12/04 23:10 Chief complaint: Patient states: High blood pressure X 1 day. Coronavirus screen: At ld1 this time, the client does not indicate any symptoms associated with coronavirus-19. Ebola Screen: No symptoms or risks identified at this time. Initial Sepsis Screen: Does the patient meet any 2 criteria? No. Patient's initial sepsis screen is negative. Does the patient have a suspected source of infection? No. Patient's initial sepsis screen is negative. Risk Assessment: Do you want to hurt yourself or someone else? Patient reports no desire to harm self or others. Onset of symptoms was December 04, 2021. 23:10 Method Of Arrival: Ambulatory ld1 23:10 Acuity: BHAVYA 3 ld1 Triage Assessment: 23:11 General: Appears in no apparent distress. comfortable, Behavior is calm, cooperative, ld1 appropriate for age. Pain: Denies pain. Neuro: Level of Consciousness is awake, alert, obeys commands, Oriented to person, place, time, situation, Appropriate for age. Cardiovascular: Capillary refill < 3 seconds Patient's skin is warm and dry. Respiratory: Airway is patent Respiratory effort is even, unlabored, Respiratory pattern is regular, symmetrical. GI: Abdomen is flat, non-distended. : No signs and/or symptoms were reported regarding the genitourinary system. Derm: No signs and/or symptoms reported regarding the dermatologic system. Musculoskeletal: No signs and/or symptoms reported regarding the musculoskeletal system. Historical: - Allergies: 23:11 PENICILLINS; ld1 - Home Meds: 23:11 None [Active]; ld1 - PMHx: 23:11 Hypertension; Kidney stones; Prostate Cancer; ld1 - PSHx: 23:11 None; ld1 - Immunization history:: Adult Immunizations up to date, Client reports receiving the 2nd dose of the Covid vaccine. - Social history:: Smoking status: Patient denies any tobacco usage or history of. Patient/guardian denies using alcohol. Screenin:12 Abuse screen: Denies threats or abuse. Denies injuries from another. Nutritional ld1 screening: No deficits noted. Tuberculosis screening: No symptoms or risk factors identified. Fall Risk None identified. Assessment: 23:12 Reassessment: See triage assessment. ld1 Vital Signs: 23:10 BP 172 / 85; Pulse 76; Resp 18; Temp 98.1(TE); Pulse Ox 96% on R/A; Weight 97.52 kg; ld1 Height 6 ft. 3 in. (190.50 cm); Pain 0/10; 23:10 Body Mass Index 26.87 (97.52 kg, 190.50 cm) ld1 ED Course: 22:51 Patient arrived in ED. es 22:51 Jaskaran Jones MD is Private Physician. es 23:06 Corey Bennett DO is Attending Physician. ms3 23:11 Triage completed. ld1 23:11 Arm band placed on right wrist. ld1 23:12 Patient has correct armband on for positive identification. Call light in reach. Side ld1 rails up X2. Pulse ox on. NIBP on. Door closed. Noise minimized. 23:12 No provider procedures requiring assistance completed. Patient did not have IV access ld1 during this emergency room visit. 23:25 Jaskaran Jones MD is Referral Physician. ms3 Administered Medications: No medications were administered Outcome: 23:25 Discharge ordered by . ms3 23:34 Discharged to home ambulatory, with family. ld1 23:34 Condition: stable 23:34 Discharge instructions given to patient, Instructed on discharge instructions, follow up and referral plans. Demonstrated understanding of instructions, follow-up care. 23:34 Patient left the ED. ld1 Signatures: Alannah Ashley Corey Bennett DO DO ms3 Xin Almaguer RN RN ld1 Corrections: (The following items were deleted from the chart) 23:12 23:11 PSHx: Unable to Obtain; ld1 ld1
[2021-12-05 00:15] VITALS: BP 172/85; TEMP 98.1; O2SAT 96
== END 2021-12-04 23:34 | disposition home or self-care (01) ==
LOC: ER 22:48
DX: I10 Essential (primary) hypertension (principal); Z88.0 Allergy status to penicillin; Z87.442 Personal history of urinary calculi; Z85.46 Personal history of malignant neoplasm of prostate
CPT/HCPCS: 99283

== ENCOUNTER 2023-07-02 21:54 | Emergency (ER) | payer SELFPAY ==
--- OUTSIDE RECORDS SUMMARY | 2023-07-02 21:57 | XMS REPORT | Continuity of Care Document ---
:1960 Author Organization [facility] t Address [address] [facility] [address] [place] [id number] Care Team Providers Name Role Phone Jaskaran Jones Primary Care Physician Karen Rodriguez RN Attending Clinician Unavailable CAROLYN NEWMAN Attending Clinician Unavailable Only, Ang Db Test Attending Clinician Unavailable Carolyn Carver Attending Clinician CAMILA FRANCO Attending Clinician Unavailable Doctor Unassigned, [place] Attending Clinician Unavailable Problems Condition Condition Condition Status Onset Resolution Last Treating Co mments Source Name Details Category Date Date Treatment Clinician Date Prostate Prostate Disease Active 2018-09 [facility] cancer [facility] l Malignant Malignant Disease Active 2018-09 [facility] neoplasm neoplasm [facility] Hospita prostate prostate 00 l Allergies, Adverse Reactions, Alerts Allergy Allergy Status Severity Reaction(s) Onset Inactive Treating Comm ents Source Name Type Date Date Clinician NO KNOWN Drug Active Univers ALLERGIE Class ity of S [facility] Social History Social Habit Start Date Stop Date Quantity Comments Source Sexual orientation 2019-04-21 Heterosexual Meth odist 16:51:25 (finding) Hospital Exposure to 2022-04-16 2022-04-26 Yes University of SARS-CoV-2 (event) 00:00:00 14:22:00 [facility] Alcohol intake 2019-08-27 2019-08-27 Ex-drinker [facility]ani 00:00:00 00:00:00 (finding) Hospital History of Social 2019-07-11 2019-07-[address] function 00:00:00 00:00:00 Hospital Tobacco use and 2019-04-25 2019-04-25 Smokeless tobacco Me thodist exposure 00:00:00 00:00:00 non-user Hospital Sex Assigned At [birth year] Universit y of 00:00:00 00:00:00 [facility] Smoking Status Start Date Stop Date Source [facility] Medications This patient has no known medications. Procedures Procedure Date / Time Performed Performing Clinician [facility] e CONSENT/REFUSAL FOR 2022-04-26 19:19:22 Doctor Unassigned, No Un [facility] DIAGNOSIS AND Name Medical Branch TREATMENT Plan of Care Planned Activity Planned Date Details Comments Source Future Scheduled 2023-07-02 Screening for [facility] Test 21:56:45 malignant neoplasm of colon (procedure) [code = 224685201] Future Scheduled 2023-07-02 Screening for [facility] Test 21:56:45 malignant neoplasm of colon (procedure) [code = 616618371] Future Scheduled 2023-07-02 Screening for [facility] Test 21:56:45 malignant neoplasm of colon (procedure) [code = 310621583] Future Scheduled 2023-07-02 COVID-19 VACCINE [facility] Test 21:56:45 (#1) [code = COVID-19 VACCINE (#1)] Future Scheduled 2023-07-02 [facility] malignant neoplasm of colon (procedure) [code = [id number]] Future Scheduled 2023-07-02 Screening for [facility] Test 21:56:45 malignant neoplasm of colon (procedure) [code = [id number]] Future Scheduled 2023-07-02 SHINGLES VACCINES [facility] Test 21:56:45 (1 of 2) [code = SHINGLES VACCINES (1 of 2)] Future Scheduled 2023-07-02 RSV VACCINES > 60 [facility] Test 21:56:45 YR (1 - 1-dose 60+ series) [code = RSV VACCINES > 60 YR (1 - 1-dose 60+ series)] Future Scheduled 2023-07-02 INFLUENZA VACCINE [facility] Test 21:56:45 (#1) [code = INFLUENZA VACCINE (#1)] Encounters Start End Encounter Admission Attending Care Care Encounter Source Date/Time Date/Time Type Type Clinicians Facility Department ID 2022-04-27 2022-04-27 Telephone Karen Rodriguez [id number] Univers 00:00:00 00:00:00 WILI [id number] it y of HOSPITAL [id number] Enrique as [id number] [address] 2022-04-26 2022-04-26 Outpatient R [facility] [id number] Univers 14:30:00 15:19:13 CAROLYN ity o f [facility] 2022-04-26 2022-04-26 Laboratory Only, Ang Db Test [facility] [id number] Univers 14:30:00 15:19:13 [id number] [facility] of [place] [id number] Enrique as ALEXEI?BLEA [id number] Mi dical [address] MED[facility] OFF[facility] 2022-04-26 2022-04-26 Outpatient R [facility] [id number] Univers 14:20:00 14:20:00 CAMILAMARK barnes of [facility] 2022-04-26 2022-04-26 Orders Doctor NADJA [id number] Univers 00:00:00 00:00:00 Only Unassigned, WILI [id number] ity of [place] [facility] [id number] Enrique as [id number] [address] Results This patient has no known results.
[2023-07-02] MEDS ORDERED: KETOROLAC 30 MG/ML INJ ONE (22:20)
[2023-07-02] MEDS ORDERED: ONDANSETRON 4 MG/2 ML VIAL ONE (22:20)
[2023-07-02] MEDS ORDERED: NA CHLORIDE 0.9% 500 ML ONE (22:22)
[2023-07-02] MEDS ORDERED: HYDROCODONE/APAP 10/325 TAB ONE (23:31)
[2023-07-02 23:49] LABS: Calcium Oxalate Crystals- Ur Few /HPF (None Seen); Specific Gravity 1.025 (1.005-1.030); Urine Bacteria None Seen /HPF (<20); Urine Bilirubin NEGATIVE (Negative); Urine Blood 2+ (Negative); Urine Clarity Clear (Clear); Urine Color Light-Yellow (Yellow); Urine Glucose NEGATIVE (Negative); Urine Mucus Slight /HPF (None Seen); Urine Protein NEGATIVE (Negative); Urine RBC 21-50 /HPF (None Seen); Urine Urobilinogen Normal (Normal)
[2023-07-02 23:56] LABS: Absolute Lymphocytes (CBC) 0.9 K/uL (0.7-4.9); Hematocrit 38.4 % (39.6-49.0); MCV 89.4 fL (80-100); MPV 9.1 fL (7.6-11.3); Platelets 201 thou/uL (152-406); RBC Red Blood Cell Count 4.29 M/uL (4.33-5.43)
[2023-07-02 23:59] LABS: Potassium 3.4 mEq/L (3.5-5.1)
--- NOTE | 2023-07-03 00:58 | EDPHYS ---
Physician Documentation [facility] Name: Nahum Quiros Age: 62 yrs Sex: Male : 1960 Arrival Date: 07/02/2023 Time: 21:54 Bed 15 Private MD: Jaskaran Jones B ED Physician Samuel Cohen HPI: 07/02 23:04 This 62 yrs old Male presents to ER via Ambulatory with complaints of Possible Kidney kdr Stone. 23:04 Patient states he had acute onset of pain in the right flank area just prior to kdr arrival. Patient's had a history of kidney stones in the past but the last time was been a number years ago. His symptoms tonight are as he is experienced in the past. Patient had some nausea but no vomiting no fever. Patient is nontoxic but uncomfortable. Onset: The symptoms/episode began/occurred just prior to arrival. Severity of symptoms: At their worst the symptoms were moderate severe just prior to arrival, in the emergency department the symptoms are unchanged. The patient has experienced similar episodes in the past, a few times. The patient has not recently seen a physician. Historical: - Allergies: 22:02 PENICILLINS; bp - PMHx: 22:02 Kidney stones; Prostate Cancer; Hypertension; bp - Immunization history:: Adult Immunizations up to date. - Social history:: Smoking status: Patient denies any tobacco usage or history of. ROS: 23:04 Constitutional: Negative for fever, chills, and weight loss, Eyes: Negative for injury, kdr pain, redness, and discharge, ENT: Negative for injury, pain, and discharge, Neck: Negative for injury, pain, and swelling, Cardiovascular: Negative for chest pain, palpitations, and edema, Respiratory: Negative for shortness of breath, cough, wheezing, and pleuritic chest pain, : Negative for injury, bleeding, discharge, and swelling, MS/Extremity: Negative for injury and deformity, Skin: Negative for injury, rash, and discoloration, Neuro: Negative for headache, weakness, numbness, tingling, and seizure activity. Psych: Negative for depression, anxiety, suicide ideation, homicidal ideation, and hallucinations, Allergy/Immunology: Negative for hives, rash, and allergies, Endocrine: Negative for neck swelling, polydipsia, polyuria, polyphagia, and marked weight changes, Hematologic/Lymphatic: Negative for swollen nodes, abnormal bleeding, and unusual bruising, 23:04 Abdomen/GI: Positive for Right flank and CVA tenderness, Negative for vomiting, diarrhea, constipation, abdominal cramps, abdominal distension, anorexia, dysphagia, hematemesis, black/tarry stool, rectal pain, rectal bleeding, 23:04 Back: Positive for flank pain, on the right, Exam: 23:04 Constitutional: This is a well developed, well nourished patient who is awake, alert, kdr and in no acute distress. Head/Face: Normocephalic, atraumatic. Eyes: Pupils equal round and reactive to light, extra-ocular motions intact. Lids and lashes normal. Conjunctiva and sclera are non-icteric and not injected. Cornea within normal limits. Periorbital areas with no swelling, redness, or edema. Neck: Trachea midline, no thyromegaly or masses palpated, and no cervical lymphadenopathy. Supple, full range of motion without nuchal rigidity, or vertebral point tenderness. No Meningismus. Chest/axilla: Normal chest wall appearance and motion. Nontender with no deformity. No lesions are appreciated. Cardiovascular: Regular rate and rhythm with a normal S1 and S2. No gallops, murmurs, or rubs. Normal PMI, no JVD. No pulse deficits. Respiratory: Lungs have equal breath sounds bilaterally, clear to auscultation and percussion. No rales, rhonchi or wheezes noted. No increased work of breathing, no retractions or nasal flaring. Abdomen/GI: Soft, non-tender, with normal bowel sounds. No distension or tympany. No guarding or rebound. No evidence of tenderness throughout. Skin: Warm, dry with normal turgor. Normal color with no rashes, no lesions, and no evidence of cellulitis. MS/ Extremity: Pulses equal, no cyanosis. Neurovascular intact. Full, normal range of motion. Neuro: Awake and alert, GCS 15, oriented to person, place, time, and situation. Cranial nerves II-XII grossly intact. Motor strength 5/5 in all extremities. Sensory grossly intact. Cerebellar exam normal. Normal gait. Psych: Awake, alert, with orientation to person, place and time. Behavior, mood, and affect are within normal limits. 23:04 Back: pain, that is mild, of the right mid back, Vital Signs: 22:01 BP 210 / 92; Pulse 84; Resp 16; Temp 98.1; Pulse Ox 99% ; Weight 94.35 kg; Height 6 ft. bp 2 in. ; 22:18 BP 204 / 101; Pulse 67; Resp 18 S; Pulse Ox 96% on R/A; as6 22:58 BP 170 / 88; Pulse 71; Resp 16 S; Pulse Ox 97% on R/A; Pain 3/10; as6 07/03 00:11 BP 177 / 84; Pulse 62; Resp 18 S; Pulse Ox 100% on R/A; as6 07/02 22:01 Body Mass Index 26.71 (94.35 kg, 187.96 cm) bp 22:58 Pain Scale: Adult as6 MDM: 07/02 23:04 Data reviewed: vital signs, nurses notes. kdr 07/03 01:03 Patient medically screened. kdr 07/02 23:01 Order name: Urinalysis w/ reflexes; Complete Time: 23:51 kdr 07/02 23:09 Order name: CBC with Diff; Complete Time: 00:24 kdr 07/02 23:09 Order name: Chem 7; Complete Time: 00:24 kdr 07/02 22:05 Order name: CT Stone Protocol bp 07/02 22:05 Order name: IV Saline Lock; Complete Time: 22:16 bp Administered Medications: 07/02 22:16 Drug: Ondansetron IVP 4 mg IVP once; over 2 minutes Route: IVP; Site: right forearm; as6 23:03 Follow up: Response: No adverse reaction as6 22:16 Drug: Ketorolac IVP 30 mg IVP once Route: IVP; Site: right forearm; as6 23:03 Follow up: Response: No adverse reaction as6 22:17 Drug: NS 0.9% IV 500 ml IV at bolus once Route: IV; Rate: bolus; Site: right forearm; as6 23:03 Follow up: Response: No adverse reaction; IV Status: Completed infusion; IV Intake: as6 500ml 23:19 Drug: [place] PO 10 mg-325 mg 1 tabs PO once Route: PO; as6 07/03 01:00 Follow up: Response: No adverse reaction as6 Disposition Summary: 07/03/23 00:58 Discharge Ordered Notes: Location: Home as6 Condition: Stable as6 Diagnosis - Calculus of kidney as6 Followup: as6 - With: Private Physician - When: 2 - 3 days - Reason: If symptoms return, Recheck today's complaints, Re-evaluation by your physician Discharge Instructions: - Discharge Summary Sheet kdr - Kidney Stones, [id number] kdr Forms: - Work release form as6 - Medication Reconciliation Form as6 - Thank You Letter as6 - Antibiotic Education as6 - Prescription Opioid Use as6 - Patient Portal Instructions as6 - Leadership Thank You Letter as6 Prescriptions: - Flomax 0.4 mg Oral capsule - take 1 capsule ORAL route daily for 10 days; 10 capsule; Refills: 0, Product kdr Selection Permitted - acetaminophen-codeine 300-30 mg Oral tablet - take 1 tablet ORAL route every 4 to 6 hours As needed as needed for pain; 12 kdr tablet; Refills: 0, Product Selection Permitted - Zofran 4 mg Oral tablet - take 1 tablet ORAL route every 12 hours As needed; 12 tablet; Refills: 0, kdr Product Selection Permitted - Bactrim DS 800-160 mg Oral Tablet - take 1 tablet ORAL route every 12 hours for 3 days; 6 tablet; Refills: 0, kdr Product Selection Permitted Signatures: Dispatcher [employer] EDSamuel Garcia MD MD kdr Peltier, Brian, RN RN Fernando Cleaning RN RN as6
--- NOTE | 2023-07-03 00:58 | ER ---
Nurse's Notes [facility] Name: Nahum Quiros Age: 62 yrs Sex: Male : 1960 Arrival Date: 07/02/2023 Time: 21:54 Bed 15 Private MD: Jaskaran Jones B Diagnosis: Calculus of kidney Presentation: 07/02 21:59 Coronavirus screen: At this time, the client does not indicate any symptoms associated as6 with coronavirus-19. Ebola Screen: No symptoms or risks identified at this time. Risk Assessment: Do you want to hurt yourself or someone else? Patient reports no desire to harm self or others. 21:59 Method Of Arrival: Ambulatory as6 22:01 Chief complaint: Patient states: R FLANK PAIN x30 MIN, H/O KIDNEY STONE, FEELS SAME bp PREVIOUS. Initial Sepsis Screen: Does the patient meet any 2 criteria? No. Patient's initial sepsis screen is negative. Does the patient have a suspected source of infection? No. Patient's initial sepsis screen is negative. Onset of symptoms was July 02, 2023 at 21:00. 22:01 Acuity: BHAVYA 3 bp Triage Assessment: 22:02 General: Appears uncomfortable, Behavior is calm, cooperative, appropriate for age. bp Pain: Complains of pain in right flank. GI: No signs and/or symptoms were reported involving the gastrointestinal system. : Reports pain in right flank(s), OLIGURIA. Historical: - Allergies: 22:02 PENICILLINS; bp - PMHx: 22:02 Kidney stones; Prostate Cancer; Hypertension; bp - Immunization history:: Adult Immunizations up to date. - Social history:: Smoking status: Patient denies any tobacco usage or history of. Screenin:59 [facility] [place] ED Fall Risk Assessment (Adult) Score/Fall Risk Level 0 - 2 = Low Risk. Abuse as6 screen: Denies threats or abuse. Denies injuries from another. Nutritional screening: No deficits noted. Tuberculosis screening: No symptoms or risk factors identified. Assessment: 22:17 General: Appears uncomfortable, Behavior is calm, cooperative. Pain: Complains of pain as6 in right flank Quality of pain is described as sharp, shooting, stabbing. Neuro: Level of Consciousness is awake, alert, obeys commands, Oriented to person, place, time, situation. Cardiovascular: Capillary refill < 3 seconds Patient's skin is warm and dry. Respiratory: Respiratory effort is even, unlabored, Respiratory pattern is regular, symmetrical. GI: Reports nausea. : Reports pain in right flank(s). EENT: No deficits noted. No signs and/or symptoms were reported regarding the EENT system. Derm: Skin is intact, is healthy with good turgor. Musculoskeletal: Circulation, motion, and sensation intact. 22:58 Reassessment: Patient appears in no apparent distress at this time. Patient and/or as6 family updated on plan of care and expected duration. Pain level reassessed. Patient is alert, oriented x 3, equal unlabored respirations, skin warm/dry/pink. Patient states feeling better. Patient states symptoms have improved. Vital Signs: 22:01 BP 210 / 92; Pulse 84; Resp 16; Temp 98.1; Pulse Ox 99% ; Weight 94.35 kg; Height 6 ft. bp 2 in. ; 22:18 BP 204 / 101; Pulse 67; Resp 18 S; Pulse Ox 96% on R/A; as6 22:58 BP 170 / 88; Pulse 71; Resp 16 S; Pulse Ox 97% on R/A; Pain 3/10; as6 07/03 00:11 BP 177 / 84; Pulse 62; Resp 18 S; Pulse Ox 100% on R/A; as6 07/02 22:01 Body Mass Index 26.71 (94.35 kg, 187.96 cm) bp 22:58 Pain Scale: Adult as6 ED Course: 07/02 21:56 Patient arrived in ED. mr 21:56 Jaskaran Jones MD is Private Physician. mr 21:57 Samuel Cohen MD is Attending Physician. kdr 21:58 Fernando Lopez, OLY is Primary Nurse. as6 21:58 Arm band placed on. as6 22:02 Triage completed. bp 22:17 Bed in low position. Call light in reach. as6 22:17 Inserted saline lock: 20 gauge in right forearm, using aseptic technique. as6 22:37 CT Stone Protocol In Process Unspecified. EDMS 23:19 Chem 7 Sent. as6 23:19 CBC with Diff Sent. as6 07/03 00:56 Provided Education on: follow up, rx teaching. as6 00:57 No provider procedures requiring assistance completed. IV discontinued, intact, as6 bleeding controlled, No redness/swelling at site. Pressure dressing applied. Administered Medications: 07/02 22:16 Drug: Ondansetron IVP 4 mg IVP once; over 2 minutes Route: IVP; Site: right forearm; as6 23:03 Follow up: Response: No adverse reaction as6 22:16 Drug: Ketorolac IVP 30 mg IVP once Route: IVP; Site: right forearm; as6 23:03 Follow up: Response: No adverse reaction as6 22:17 Drug: NS 0.9% IV 500 ml IV at bolus once Route: IV; Rate: bolus; Site: right forearm; as6 23:03 Follow up: Response: No adverse reaction; IV Status: Completed infusion; IV Intake: as6 500ml 23:19 Drug: [place] PO 10 mg-325 mg 1 tabs PO once Route: PO; as6 07/03 01:00 Follow up: Response: No adverse reaction as6 Medication: 07/02 21:59 VIS not applicable for this client. as6 Intake: 23:03 IV: 500ml; Total: 500ml. as6 Outcome: 07/03 00:57 Discharged to home ambulatory, as6 Condition: stable Discharge instructions given to patient, Instructed on discharge instructions, follow up and referral plans. medication usage, Demonstrated understanding of instructions, follow-up care, medications, Prescriptions given X 4, 00:58 Discharge ordered by . as6 01:00 Patient left the ED. as6 Signatures: Dispatcher [employer] EDMS Samuel Cohen MD MD [facility] Fatuma Duque, [facility] Chase Lockhart, Fernando Ramos RN, RN RN as6
[2023-07-03 01:10] VITALS: TEMP 98.1
[2023-07-03 01:27] VITALS: BP 177/84; O2SAT 100
--- NOTE | 2023-07-03 18:16 | RAD REPORT ---
EXAM DESCRIPTION: CT - Stone Protocol - 07/03/2023 6:14 am CLINICAL HISTORY: FLANK PAIN. COMPARISON: CT abdomen/pelvis from July 17, 2019. TECHNIQUE: Serial axial CT images were obtained from above the diaphragm through the pubic symphysis without administration of intravenous or oral contrast. All CT scans are performed using dose optimization techniques as appropriate, including automated exp osure control and/or standardized protocols, where dose is adjusted for indication for exam and body habitus. FINDINGS: Thoracic: Unchanged few calcified and small noncalcified pulmonary nodules in the lung bas es. Hepatobiliary: No obvious concerning hepatic lesion identified in the absence of intravenous contrast . Cholelithiasis in a partially contracted gallbladder. No biliary ductal dilatation. Pancreas: Unremarkable. Spleen: Unremarkable. Gastrointestinal: Diffuse hepatic steatosis. No evidence of bowel obstruction or perienteric inflamma tion. The appendix is normal. Adrenals: No abnormality identified in either adrenal gland. Renal: Two adjacent distal right ureteral calculi measure 0.3 cm and 0.2 cm. Mild right-sided hydrone phrosis and hydroureter. No hydronephrosis or urolithiasis on the left. Nonobstructive calculus versu s parenchymal calcification in the inferior right kidney measuring 0.2 cm. Small simple cyst in the r ight kidney (no follow-up imaging recommended). Bladder/Reproductive: Mild circumferential wall thickening of the underdistended urinary bladder. Vascular/Lymphatics: Minimally prominent right inguinal lymph nodes. Abdominal aorta is normal in adria iber. Musculoskeletal: No concerning osseous lesion identified. Prominent disc height loss at L5-S1. Fluid / peritoneum: No significant free fluid. No free intraperitoneal air identified. IMPRESSION: Two adjacent distal right ureteral calculi measure 0.3 cm and 0.2 cm. Mild right-sided hydronephrosis. Electronically signed by: Patito Lees MD 07/02/2023 10:59 PM CDT Due to temporary technical issues with the PACS/Fluency reporting system, reports are being signed by the in house radiologists without review as a courtesy to insure prompt reporting. The interpreting radiologist is fully responsible for the content of the report.
== END 2023-07-03 01:00 | disposition home or self-care (01) ==
LOC: ER 21:54
DX: N20.0 Calculus of kidney (principal); Z87.442 Personal history of urinary calculi; I10 Essential (primary) hypertension; Z88.0 Allergy status to penicillin
CPT/HCPCS: 36415; 74176; 76377; 80048; 81001; 85025; 96361; 96374; 96375; 99284; J2405; J7040